=== PATIENT | female | born 1975 | race African-American/Black ===

== ENCOUNTER 2018-06-10 00:28 | Emergency (ER) | payer MEDICAID ==
[~2018-06-10] VITALS: Ht 172.7 cm; Wt 110.5 kg
[2018-06-10 00:31] VITALS: Ht 172.7 cm; Wt 110.5 kg
[2018-06-10] MEDS ORDERED: BACTRIM DS TABL1 TAB PO (01:35)
[2018-06-10 02:14] VITALS: BP 122/88
== END 2018-06-10 02:15 | disposition home or self-care (01) ==
LOC: D.ER 00:28
DX: L03.011 Cellulitis of right finger (principal)